=== PATIENT | male | born 1990 | race Caucasian/White ===

== ENCOUNTER 2019-07-19 05:50 | Emergency (ER) | payer MEDICAID ==
[~2019-07-19] VITALS: Ht 177.8 cm; Wt 124.0 kg
[2019-07-19] MEDS ORDERED: MECLIZINE CHEWABLE 25 MG TAB ONE (06:17)
[2019-07-19] MEDS ORDERED: ONDANSETRON 2MG/ML, 2ML ONE (06:17)
[2019-07-19] MEDS ORDERED: ASPIRIN 81 MG TABLET CHEW ONE (06:17)
--- NOTE | 2019-07-19 06:24 | NUR ---
PT REFUSED ALL MEDICATIONS AND REFUSED PIV PLACEMENT. ER BEAR ZHANG NOTIFIED.
[2019-07-19] MEDS ORDERED: ONDANSETRON 2MG/ML, 2ML IVPush ONE (06:30)
[2019-07-19] MEDS ORDERED: MECLIZINE CHEWABLE 25 MG TAB PO ONE (06:30)
[2019-07-19] MEDS ORDERED: SODIUM CHLORIDE FLUSH 10ML SYR IVF ONE (06:30)
[2019-07-19] MEDS ORDERED: PLEASE ENTER ALLERGIES MC SCH (06:30)
[2019-07-19] MEDS ORDERED: ASPIRIN 81 MG TABLET CHEW PO ONE (06:30)
[2019-07-19 06:54] LABS: BASOPHILS # (AUTO) 0.08 x10^3/uL (0-0.1); BASOPHILS % (AUTO) 1 % (0-1); EOSINOPHILS # (AUTO) 0.32 x10^3/uL (0-0.4); EOSINOPHILS % (AUTO) 4 % (1-7); LYMPHOCYTES # (AUTO) 1.94 x10^3/uL (1-3.4); LYMPHOCYTES % (AUTO) 26 % (22-44); MD NO; MEAN CORPUSCULAR HEMOGLOBIN 35.3 pg (27.5-34.5); MEAN CORPUSCULAR HGB CONC 34.2 g/dL (33.2-36.2); MEAN CORPUSCULAR VOLUME 103.4 fL (81-97); MONOCYTES # (AUTO) 0.76 x10^3/uL (0.2-0.8); MONOCYTES % (AUTO) 10 % (2-9); NEUTROPHILS # (AUTO) 4.36 x10^3/uL (1.8-6.8); NEUTROPHILS % (AUTO) 58 % (42-75); PLATELET COUNT 143 x10^3/uL (130-400); RED CELL DISTRIBUTION WIDTH 13.6 % (9.4-14.8)
[2019-07-19 07:03] LABS: ALBUMIN 3.6 g/dL (3.4-5.0); ANION GAP 7 mmol/L (5-15); CALCIUM 8.5 mg/dL (8.5-10.1); CHLORIDE 108 mmol/L (98-107)
[2019-07-19 07:08] LABS: ALANINE AMINOTRANSFERASE 81 U/L (12-78); ALKALINE PHOSPHATASE 81 U/L (45-117); BILIRUBIN,TOTAL 0.9 mg/dL (0.2-1.0); CREATININE 0.83 mg/dL (0.7-1.3); TOTAL PROTEIN 7.4 g/dL (6.4-8.2); TROPONIN I < 0.015 ng/mL (0.000-0.045)
--- NOTE | 2019-07-19 07:28 | NUR ---
ASSUMED CARE. PT STATES HE IS FEELING ANXIOUS AND FEELING SOB/CHEST HEAVY/BLURRY VISION. PT NOT SURE WHY HE IS FEELING THIS WAY
[2019-07-19 07:29] VITALS: BP 134/71
--- NOTE | 2019-07-19 07:32 | NUR ---
PA MADE AWARE OF HOW PT FEELING AST THIS TIME
[2019-07-19] MEDS ORDERED: LORazepam 1MG TABLET PO ONE (08:00)
[2019-07-19] MEDS ORDERED: LORazepam 1MG TABLET ONE (08:16)
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
== END 2019-07-19 08:39 | disposition home or self-care (01) ==
LOC: ED 06:42
DX: K70.10 Alcoholic hepatitis without ascites (principal); F10.239 Alcohol dependence with withdrawal, unspecified; F17.210 Nicotine dependence, cigarettes, uncomplicated; Y90.0 Blood alcohol level of less than 20 mg/100 ml
CPT/HCPCS: 36415; 71045; 80053; 80307; 83690; 84484; 85025; 93005; 99285